=== PATIENT | female | born 1965 | race Caucasian/White ===

== ENCOUNTER 2017-05-01 13:47 | Emergency (ER) | payer OTHER ==
[2017-05-01] MEDS: KETOROLAC 30 MG INJ IM (16:02)
[2017-05-01] MEDS: ACETAMINOPHEN 500 MG TAB PO (16:02)
[2017-05-01] MEDS: SOD CHLORIDE 0.9% 1,000 ML IV (16:27)
== END 2017-05-01 18:14 | disposition home or self-care (01) ==
LOC: FTE 13:47
DX: J06.9 Acute upper respiratory infection, unspecified (principal)
CPT/HCPCS: 71010; 87400; 96372; 99284-25

== ENCOUNTER 2018-10-15 05:03 | Emergency (ER) | payer OTHER ==
[2018-10-15] MEDS: ACETAMINOPHEN 325 MG TAB PO (05:36)
[2018-10-15] MEDS: CEFTRIAXONE 1 GM INJ IM (05:37)
[2018-10-15] MEDS: DEXAMETHASONE 10 MG/ML 1 ML INJ IM (05:37)
[2018-10-15] MEDS: IBUPROFEN 800 MG TAB PO (05:37)
[2018-10-15] MEDS: ONDANSETRON (ODT) 4 MG TAB ODT (05:37)
[2018-10-15] MEDS: GUAIFENESIN/DM 5ML CUP PO (05:43)
[2018-10-15] MEDS: IPRATROPIUM (NEB) 0.5 MG/2.5 ML AMP HHN (05:48)
[2018-10-15] MEDS: ALBUTEROL 0.083% (NEB) 2.5 MG/3 ML AMP HHN (05:48)
== END 2018-10-15 06:30 | disposition home or self-care (01) ==
LOC: FTE 05:03
DX: J03.90 Acute tonsillitis, unspecified (principal); J40 Bronchitis, not specified as acute or chronic
CPT/HCPCS: 94664; 96372; 99284-25